=== PATIENT | female | born 1945 | race Caucasian/White ===

== ENCOUNTER 2023-04-07 22:52 | Emergency (ER) | payer MEDICARE, OTHER ==
[~2023-04-07] VITALS: Ht 165.1 cm; Wt 100.4 kg
[2023-04-07 22:56] VITALS: BP 164/88
--- NOTE | 2023-04-07 23:41 | NUR ---
PT REPORTS BEING PERSCRIBED GABAPENTIN FROM HER PMD BUT SHE HAS NOT TAKEN IT.
[2023-04-08] MEDS ORDERED: gabapentin 400mg capsule PO SCH (00:35)
[2023-04-08] MEDS ORDERED: ibuprofen 200mg tablet PO ONE (00:35)
[2023-04-08] MEDS ORDERED: HYDROcodone/acetaminophen 5mg/325mg tablet PO ONE (00:35)
[2023-04-08] MEDS ORDERED: acetaminophen 325mg tablet PO ONE (00:35)
[2023-04-08] MEDS ORDERED: gabapentin 100mg capsule PO ONE (01:00)
== END 2023-04-08 01:09 | disposition home or self-care (01) ==
LOC: ER 22:53
DX: M79.2 Neuralgia and neuritis, unspecified (principal); R20.0 Anesthesia of skin
CPT/HCPCS: 99284

== ENCOUNTER 2024-03-11 08:17 | Inpatient (IN) | payer MEDICARE, OTHER ==
[~2024-03-11] VITALS: Ht 167.6 cm; Wt 98.2 kg
[2024-03-11 09:48] LABS: BASOPHILS % (AUTO) 0.2 % (0-1); EOSINOPHILS # (AUTO) 0.2 X10'3 (0-0.9); EOSINOPHILS % (AUTO) 0.9 % (0-6); HEMOGLOBIN 14.1 g/dl (12.0-16.0); LYMPHOCYTES # (AUTO) 1.1 X10'3 (1.1-4.8); LYMPHOCYTES % (AUTO) 6.2 % (21-51); MEAN CORPUSCULAR HEMOGLOBIN 31.2 PG (27.0-31.0); MEAN CORPUSCULAR HGB CONC 32.1 g/dL (33.0-36.5); MEAN CORPUSCULAR VOLUME 97.2 FL (78-98); MEAN PLATELET VOLUME 10.1 FL (7.4-10.4); MONOCYTES # (AUTO) 1.5 X10'3 (0-0.9); MONOCYTES % (AUTO) 8.5 % (2-12); NEUTROPHILS # (AUTO) 15.2 X10'3 (1.8-7.7); NEUTROPHILS % (AUTO) 84.2 % (42-75); PLATELET COUNT 211 X10'3 (140-440); RED BLOOD COUNT 4.53 X10'6 (4.20-5.60); RED CELL DISTRIBUTION WIDTH 13.9 % (11.5-14.5)
[2024-03-11 10:11] LABS: ALANINE AMINOTRANSFERASE 27 U/L (12-78); ALBUMIN 3.5 G/DL (3.4-5.0); ALBUMIN/GLOBULIN RATIO 1.1 (1.1-1.5); ALKALINE PHOSPHATASE 53 IU/L (46-116); ANION GAP 11 (8-16); ASPARTATE AMINO TRANSFERASE 14 U/L (10-37); BILIRUBIN,TOTAL 0.5 MG/DL (0.1-1.0); BLOOD UREA NITROGEN 20 MG/DL (7-18); CALCIUM 9.2 MG/DL (8.5-10.1); CHLORIDE 106 MMOL/L (99-107); GLUCOSE 151 MG/DL (70-104); SODIUM 143 MMOL/L (135-145); TOTAL CARBON DIOXIDE 26.5 MMOL/L (24-32); TOTAL PROTEIN 6.7 G/DL (6.4-8.2); eCRCL 53 ML/MIN; eGFR 69 ML/MIN
[2024-03-11 10:21] LABS: AMYLASE 20 U/L (25-115); LIPASE 29 U/L (16-77); PRO BRAIN NATRIURETIC PEPTIDE 291 PG/ML (0-450)
[2024-03-11] MEDS: ondansetron/PF 4mg/2ml inj IV ONE (10:43)
[2024-03-11] MEDS: ringers solution, lacted 1,000 ML IV ONE (10:43)
[2024-03-11] MEDS: pantoprazole 40 MG vial IV ONE (10:43)
[2024-03-11 12:50] LABS: BILIRUBIN,URINE SMALL (Neg); CLARITY,URINE CLOUDY (Clear); COLOR,URINE YELLOW (Yellow); GLUCOSE, URINE NEGATIVE (Neg); KETONES,URINE NEGATIVE (Neg); LEUKOCYTE ESTERASE ,URINE TRACE (Neg); NITRITES, URINE POSITIVE (Neg); OCCULT BLOOD,URINE NEGATIVE (Neg); PROTEIN,URINE 100 mg/dl (Neg); UROBILINOGEN,URINE 0.2 E.U/dL (0.2-1.0)
[2024-03-11 13:14] LABS: SQUAMOUS EPITHELIAL CELL,UR MANY /LPF (FEW)
[2024-03-11 13:16] LABS: BACTERIA,URINE 4+ /HPF (Neg)
[2024-03-11 13:18] LABS: RBC,URINE 0-2 /HPF (0-2)
[2024-03-11 13:22] LABS: UA COLLECTION TYPE VOIDED
[2024-03-11] MEDS: CefTRIAXone 2gm/D5W 50ml BAG 50 ML IV ONE (14:33)
[2024-03-11] MEDS ORDERED: acetaminophen 325mg tablet PO PRN (15:25)
[2024-03-11] MEDS ORDERED: potassium Cl 40MEQ/1/2NS 520ml 520 ML IV PRN (15:25)
[2024-03-11] MEDS ORDERED: magnesium hydroxide 30ml (MOM) UD suspension PO PRN (15:25)
[2024-03-11] MEDS ORDERED: magnesium 4gm in 100ml NS 100 ML IV PRN (15:25)
[2024-03-11] MEDS ORDERED: magnesium Cl slow-release 64mg tablet PO PRN (15:25)
[2024-03-11] MEDS ORDERED: magnesium 2GM in 50ml NS 50 ML IV PRN (15:25)
[2024-03-11] MEDS ORDERED: potassium Cl 20 mEq SR tablet PO PRN ×2 (15:25)
[2024-03-11] MEDS ORDERED: ondansetron/PF 4mg/2ml inj IV PRN (15:25)
[2024-03-11] MEDS ORDERED: mag hydrox/Alum hydrox/simeth 30ml oral suspension PO PRN (15:25)
[2024-03-11] MEDS ORDERED: DEXTROSE 15 GM of carb/4 tabs (each vial/BOTTLE has 4 tablets) PO PRN ×2 (15:35)
[2024-03-11] MEDS ORDERED: glucagon, human recombinant 1mg kit SUBCUT PRN (15:35)
[2024-03-11] MEDS ORDERED: dextrose 50%-water 50ml dispensing syringe IV PRN ×2 (15:35)
[2024-03-11] MEDS: normal saline 1000ml 1,000 ML IV SCH (16:05)
[2024-03-11 16:19] LABS: HEMOGLOBIN A1C 6.1 % (4.5-6.2)
[2024-03-11] MEDS: INSULIN LISPRO 100 UNIT/ML INSULN.PEN MULTI-DOSE SQ SCH (17:00)
[2024-03-11] MEDS: heparin, porcine 5000 units/ml vial SQ SCH (20:00)
[2024-03-11] MEDS: K and/or MAG REPLACEMENT MC SCH (20:00)
[2024-03-11] MEDS: insulin glargine (Lantus) pen - multi-dose SQ SCH (21:00)
[2024-03-11 22:09] VITALS: BP 128/86; PULSE 71; RESP 16; TEMP 97.5; O2SAT 94
[2024-03-12 06:00] VITALS: BP 113/68; PULSE 65; RESP 14; TEMP 98.2; O2SAT 93
[2024-03-12] MEDS: CefTRIAXone/D5W-Rocephin 1gm 50 ML IV SCH (07:39)
[2024-03-12 08:05] LABS: BASOPHILS % (AUTO) 0.2 % (0-1); EOSINOPHILS # (AUTO) 0.1 X10'3 (0-0.9); HEMATOCRIT 39.7 % (35.0-45.0); HEMOGLOBIN 13.2 g/dl (12.0-16.0); LYMPHOCYTES # (AUTO) 1.3 X10'3 (1.1-4.8); LYMPHOCYTES % (AUTO) 13.1 % (21-51); MEAN CORPUSCULAR HEMOGLOBIN 32.2 PG (27.0-31.0); MEAN CORPUSCULAR HGB CONC 33.2 g/dL (33.0-36.5); MEAN CORPUSCULAR VOLUME 96.9 FL (78-98); MONOCYTES # (AUTO) 0.4 X10'3 (0-0.9); MONOCYTES % (AUTO) 4.4 % (2-12); NEUTROPHILS # (AUTO) 8.1 X10'3 (1.8-7.7); NEUTROPHILS % (AUTO) 81.3 % (42-75); PLATELET COUNT 193 X10'3 (140-440); RED CELL DISTRIBUTION WIDTH 13.7 % (11.5-14.5); WHITE BLOOD COUNT 9.9 X10'3 (4.5-11.0)
[2024-03-12 08:37] LABS: ALANINE AMINOTRANSFERASE 24 U/L (12-78); ALBUMIN 3.3 G/DL (3.4-5.0); ALBUMIN/GLOBULIN RATIO 1.1 (1.1-1.5); ALKALINE PHOSPHATASE 51 IU/L (46-116); ANION GAP 5 (8-16); ASPARTATE AMINO TRANSFERASE 14 U/L (10-37); BILIRUBIN,TOTAL 0.4 MG/DL (0.1-1.0); BLOOD UREA NITROGEN 17 MG/DL (7-18); BUN/CREATININE RATIO 31.5 (10.0-20.0); CALCIUM 8.4 MG/DL (8.5-10.1); CHLORIDE 110 MMOL/L (99-107); CHOLESTEROL 167 MG/DL (0-200); CREATININE 0.54 MG/DL (0.40-0.90); GLUCOSE 129 MG/DL (70-104); HDL CHOLESTEROL 56 MG/DL (35-60); LDL CHOLESTEROL 86 MG/DL (50-100); MAGNESIUM 2.2 MG/DL (1.5-2.4); POTASSIUM 4.1 MMOL/L (3.5-5.1); SODIUM 143 MMOL/L (135-145); THYROID STIMULATING HORMONE 0.34 ulU/ml (0.34-4.50); TOTAL CARBON DIOXIDE 28.5 MMOL/L (24-32); TOTAL PROTEIN 6.4 G/DL (6.4-8.2); TRIGLYCERIDES 97 MG/DL (20-135); eCRCL 79 ML/MIN; eGFR > 90 ML/MIN
[2024-03-12 11:00] VITALS: BP 128/81; PULSE 69; RESP 17; TEMP 98.4; O2SAT 97
[2024-03-12] MEDS ORDERED: SIMV-42 PO (17:49)
[2024-03-12] MEDS ORDERED: ASPI81TA52 PO (17:49)
[2024-03-12] MEDS ORDERED: METF-880 PO (17:49)
[2024-03-12 22:00] VITALS: BP 146/70; PULSE 62; RESP 16; TEMP 97.4; O2SAT 97
[2024-03-13 06:39] LABS: BASOPHILS # (AUTO) 0.1 X10'3 (0-0.2); EOSINOPHILS # (AUTO) 0.2 X10'3 (0-0.9); EOSINOPHILS % (AUTO) 2.4 % (0-6); HEMATOCRIT 38.2 % (35.0-45.0); HEMOGLOBIN 12.6 g/dl (12.0-16.0); LYMPHOCYTES # (AUTO) 1.7 X10'3 (1.1-4.8); LYMPHOCYTES % (AUTO) 21.4 % (21-51); MEAN CORPUSCULAR VOLUME 96.9 FL (78-98); MONOCYTES # (AUTO) 0.4 X10'3 (0-0.9); MONOCYTES % (AUTO) 4.9 % (2-12); NEUTROPHILS # (AUTO) 5.6 X10'3 (1.8-7.7); NEUTROPHILS % (AUTO) 70.3 % (42-75); PLATELET COUNT 178 X10'3 (140-440); RED BLOOD COUNT 3.94 X10'6 (4.20-5.60); RED CELL DISTRIBUTION WIDTH 13.8 % (11.5-14.5)
[2024-03-13 07:05] LABS: ALANINE AMINOTRANSFERASE 23 U/L (12-78); ALBUMIN 3.3 G/DL (3.4-5.0); ALBUMIN/GLOBULIN RATIO 1.1 (1.1-1.5); ALKALINE PHOSPHATASE 47 IU/L (46-116); ANION GAP 5 (8-16); ASPARTATE AMINO TRANSFERASE 18 U/L (10-37); BILIRUBIN,TOTAL 0.3 MG/DL (0.1-1.0); BLOOD UREA NITROGEN 13 MG/DL (7-18); BUN/CREATININE RATIO 26.5 (10.0-20.0); CALCIUM 8.2 MG/DL (8.5-10.1); CHLORIDE 111 MMOL/L (99-107); CREATININE 0.49 MG/DL (0.40-0.90); GLUCOSE 112 MG/DL (70-104); MAGNESIUM 2.3 MG/DL (1.5-2.4); POTASSIUM 4.1 MMOL/L (3.5-5.1); SODIUM 144 MMOL/L (135-145); TOTAL CARBON DIOXIDE 28.4 MMOL/L (24-32); TOTAL PROTEIN 6.4 G/DL (6.4-8.2); eCRCL 87 ML/MIN; eGFR > 90 ML/MIN
[2024-03-13] MEDS ORDERED: CEPH500C2 PO (14:01)
== END 2024-03-13 16:01 | disposition home health service (06) | DRG 392 ==
LOC: ER 08:18 → UNDOADMIN 15:28 → ED HOLD 15:28 → ORTHO 4S 21:28
PROVIDERS: ADMIT Family Medicine; ATTEND Internal Medicine
DX: A08.4 Viral intestinal infection, unspecified (principal); N39.0 Urinary tract infection, site not specified; E78.00 Pure hypercholesterolemia, unspecified; I25.10 Atherosclerotic heart disease of native coronary artery without angina pectoris; I35.0 Nonrheumatic aortic (valve) stenosis; Z20.822 Contact with and (suspected) exposure to COVID-19; E11.9 Type 2 diabetes mellitus without complications; N13.9 Obstructive and reflux uropathy, unspecified; M54.9 Dorsalgia, unspecified; I10 Essential (primary) hypertension; G89.29 Other chronic pain; Z90.710 Acquired absence of both cervix and uterus
CPT/HCPCS: 36415; 71045; 74176; 76700; 80053; 80061; 81001; 82150; 82948; 83036; 83605; 83690; 83735; 83880; 84443; 84484; 85025; 87040; 87077; 87081; 87088; 87186; 87811; 93005; 99285; C9113; G0378; J0696; J1644; J1815; J2405; J7030; J7120

== ENCOUNTER 2024-05-16 12:12 | Day surgery (SDC) | payer MEDICARE, OTHER ==
[~2024-05-16 12:12] MED LIST: ASPI81TA52 PO; CEPH500C2 PO; METF-880 PO; SIMV-42 PO
[2024-05-16 12:56] LABS: BASOPHILS % (AUTO) 0.3 % (0-1); EOSINOPHILS # (AUTO) 0.1 X10'3 (0-0.9); EOSINOPHILS % (AUTO) 0.8 % (0-6); HEMATOCRIT 40.9 % (35.0-45.0); HEMOGLOBIN 13.4 g/dl (12.0-16.0); LYMPHOCYTES # (AUTO) 1.4 X10'3 (1.1-4.8); LYMPHOCYTES % (AUTO) 15.9 % (21-51); MEAN CORPUSCULAR HEMOGLOBIN 31.4 PG (27.0-31.0); MEAN CORPUSCULAR HGB CONC 32.8 g/dL (33.0-36.5); MEAN CORPUSCULAR VOLUME 95.9 FL (78-98); MEAN PLATELET VOLUME 9.7 FL (7.4-10.4); MONOCYTES # (AUTO) 0.8 X10'3 (0-0.9); MONOCYTES % (AUTO) 8.5 % (2-12); NEUTROPHILS # (AUTO) 6.6 X10'3 (1.8-7.7); NEUTROPHILS % (AUTO) 74.5 % (42-75); PLATELET COUNT 192 X10'3 (140-440); RED BLOOD COUNT 4.27 X10'6 (4.20-5.60); RED CELL DISTRIBUTION WIDTH 14.3 % (11.5-14.5); WHITE BLOOD COUNT 8.9 X10'3 (4.5-11.0)
[2024-05-16 13:04] LABS: APTT 25 SECONDS (22-32); PROTHROMBIN TIME 10.6 SECONDS (9.0-12.0)
[2024-05-16 13:05] LABS: ALBUMIN 3.6 G/DL (3.4-5.0); ANION GAP 8 (8-16); BLOOD UREA NITROGEN 13 MG/DL (7-18); BUN/CREATININE RATIO 22.4 (10.0-20.0); CHLORIDE 107 MMOL/L (99-107); CHOL/HDL RATIO 2.7 (0.00-4.99); CHOLESTEROL 173 MG/DL (0-200); CREATININE 0.58 MG/DL (0.40-0.90); GLUCOSE 104 MG/DL (70-104); HDL CHOLESTEROL 64 MG/DL (35-60); LDL CHOLESTEROL 92 MG/DL (50-100); SODIUM 143 MMOL/L (135-145); TOTAL CARBON DIOXIDE 28.2 MMOL/L (24-32); TRIGLYCERIDES 91 MG/DL (20-135); eGFR > 90 ML/MIN
[2024-05-19] MEDS ORDERED: LIDOcaine 1% (10mg/ml) 2ml vial ONE (11:44)
[2024-05-19] MEDS ORDERED: verapamil 2.5 mg/ml inj IV ONE (11:44)
[2024-05-19] MEDS ORDERED: heparin 1,000 UNITS/NS 500ml 500 ML ONE (11:44)
[2024-05-19] MEDS ORDERED: heparin 1,000unit/ml 10ml vial 0 ML ONE (11:44)
[2024-05-19] MEDS ORDERED: nitroGLYCERIN 500mcg/5mL D5W 0 ML IV ONE (11:44)
[2024-05-19] MEDS ORDERED: iohexol 350MG/ML 100ml bottle IV ONE (11:44)
[2024-05-19] MEDS ORDERED: midazolam 1 mg/ML 2ml injection ONE (11:45)
[2024-05-19] MEDS ORDERED: fentaNYL/PF 50MCG/1 ML 2ML syringe ONE (11:45)
== END 2024-05-16 23:59 | disposition home or self-care (01) ==
LOC: SSTAY O 12:12
PROVIDERS: ATTEND Student in an Organized Health Care Education/Training Program
DX: Z01.818 Encounter for other preprocedural examination (principal); I35.0 Nonrheumatic aortic (valve) stenosis; R53.83 Other fatigue; E78.00 Pure hypercholesterolemia, unspecified; G62.9 Polyneuropathy, unspecified; M19.90 Unspecified osteoarthritis, unspecified site; Z79.84 Long term (current) use of oral hypoglycemic drugs; Z79.82 Long term (current) use of aspirin; Z79.899 Other long term (current) drug therapy
CPT/HCPCS: 36415; 80048; 80061; 85025; 85610; 85730; J1644; J2250; J3010; J3490; Q9967

== ENCOUNTER 2024-08-12 13:28 | Inpatient (IN) | payer MEDICARE, OTHER ==
[~2024-08-12] VITALS: Ht 165.1 cm; Wt 107.5 kg
[2024-08-12] VITALS (7 sets, daily range): BP systolic 72–94; BP diastolic 34–62; PULSE 87–101; RESP 13–19; TEMP 98.3–98.8; O2SAT 87–96
[~2024-08-12 13:28] MED LIST changes: +ASCO500C14 PO; +CHOL500049 PO; +MULT-1085 PO; +OMEG100037 PO; +UBID50TA3 PO; +ZINC30CA PO
[2024-08-12 13:50] LABS: BASOPHILS % (AUTO) 0.1 % (0-1); EOSINOPHILS % (AUTO) 0.5 % (0-6); HEMATOCRIT 41.7 % (35.0-45.0); HEMOGLOBIN 13.4 g/dl (12.0-16.0); LYMPHOCYTES # (AUTO) 0.2 X10'3 (1.1-4.8); MEAN CORPUSCULAR HEMOGLOBIN 31.2 PG (27.0-31.0); MEAN CORPUSCULAR HGB CONC 32.1 g/dL (33.0-36.5); MEAN CORPUSCULAR VOLUME 97.3 FL (78-98); MONOCYTES % (AUTO) 0.3 % (2-12); NEUTROPHILS # (AUTO) 3.8 X10'3 (1.8-7.7); NEUTROPHILS % (AUTO) 93.1 % (42-75); PLATELET COUNT 145 X10'3 (140-440); RED BLOOD COUNT 4.28 X10'6 (4.20-5.60); RED CELL DISTRIBUTION WIDTH 14.2 % (11.5-14.5); WHITE BLOOD COUNT 4.1 X10'3 (4.5-11.0)
[2024-08-12 14:02] LABS: ALANINE AMINOTRANSFERASE 26 U/L (12-78); ALBUMIN 3.5 G/DL (3.4-5.0); ALBUMIN/GLOBULIN RATIO 1.3 (1.1-1.5); ALKALINE PHOSPHATASE 72 IU/L (46-116); ANION GAP 12 (8-16); ASPARTATE AMINO TRANSFERASE 16 U/L (10-37); BILIRUBIN,TOTAL 0.9 MG/DL (0.1-1.0); BLOOD UREA NITROGEN 17 MG/DL (7-18); CALCIUM 8.8 MG/DL (8.5-10.1); CHLORIDE 109 MMOL/L (99-107); CREATININE 1.06 MG/DL (0.40-0.90); GLUCOSE 139 MG/DL (70-104); POTASSIUM 3.4 MMOL/L (3.5-5.1); SODIUM 145 MMOL/L (135-145); TOTAL CARBON DIOXIDE 24.2 MMOL/L (24-32); TOTAL PROTEIN 6.3 G/DL (6.4-8.2); eGFR 50 ML/MIN
[2024-08-12] MEDS: normal saline 1000ML IV soln IVB ONE ×2 (14:08→17:13)
[2024-08-12 14:10] LABS: PRO BRAIN NATRIURETIC PEPTIDE 459 PG/ML (0-450)
[2024-08-12] MEDS: morphine 4 MG/ML inj SYRINge IV ONE (14:29)
[2024-08-12 15:27] LABS: BILIRUBIN,URINE NEGATIVE (Neg); CLARITY,URINE CLOUDY (Clear); COLOR,URINE YELLOW (Yellow); GLUCOSE, URINE NEGATIVE (Neg); KETONES,URINE NEGATIVE (Neg); LEUKOCYTE ESTERASE ,URINE SMALL (Neg); NITRITES, URINE NEGATIVE (Neg); OCCULT BLOOD,URINE MODERATE (Neg); PROTEIN,URINE 100 mg/dl (Neg); UA COLLECTION TYPE STRAIGHT CATH
[2024-08-12 15:34] LABS: SQUAMOUS EPITHELIAL CELL,UR FEW /LPF (FEW); WBC,URINE 30-50 /HPF (0-4)
[2024-08-12 15:35] LABS: BACTERIA,URINE 4+ /HPF (Neg)
[2024-08-12] MEDS ORDERED: magnesium sulf-water 2g/50mL 50 ML IV PRN (15:40)
[2024-08-12] MEDS ORDERED: potassium Cl 40MEQ/1/2NS 520ml 520 ML IV PRN (15:40)
[2024-08-12] MEDS ORDERED: magnesium Cl slow-release 64mg tablet PO PRN (15:40)
[2024-08-12] MEDS ORDERED: potassium Cl 20 mEq SR tablet PO PRN ×2 (15:40)
[2024-08-12] MEDS ORDERED: ondansetron/PF 4mg/2ml inj IV PRN (15:40)
[2024-08-12] MEDS ORDERED: magnesium sulf-water 4G/100mL 100 ML IV PRN (15:40)
[2024-08-12] MEDS: CefTRIAXone 2gm/D5W 50ml BAG 50 ML IV ONE (15:49)
[2024-08-12] MEDS: normal saline 1000ml 1,000 ML IV SCH (16:40)
[2024-08-12] MEDS: acetaminophen 325mg tablet PO SCH (16:41)
[2024-08-12] MEDS: normal saline 500ml IV soln 500 ML IV ONE (17:00)
[2024-08-12 18:11] LABS: C-REACTIVE PROTEIN 0.66 MG/DL (0.0-0.5)
[2024-08-12] MEDS: tamsulosin 0.4mg capsule PO SCH (18:55)
[2024-08-12] MEDS: heparin, porcine 5000 units/ml vial SQ SCH (20:00)
[2024-08-12] MEDS: normal saline 1000ml 1,000 ML IV ONE (22:28)
[2024-08-12 23:13] LABS: BASOPHILS % (AUTO) 0 % (0-1); EOSINOPHILS % (AUTO) 0 % (0-6); HEMATOCRIT 32.8 % (35.0-45.0); HEMOGLOBIN 10.5 g/dl (12.0-16.0); LYMPHOCYTES # (AUTO) 0.2 X10'3 (1.1-4.8); LYMPHOCYTES % (AUTO) 0.9 % (21-51); MEAN CORPUSCULAR VOLUME 97.1 FL (78-98); MEAN PLATELET VOLUME 10.2 FL (7.4-10.4); MONOCYTES # (AUTO) 0.8 X10'3 (0-0.9); MONOCYTES % (AUTO) 3.4 % (2-12); NEUTROPHILS # (AUTO) 23.3 X10'3 (1.8-7.7); NEUTROPHILS % (AUTO) 95.7 % (42-75); PLATELET COUNT 114 X10'3 (140-440); RED BLOOD COUNT 3.38 X10'6 (4.20-5.60); RED CELL DISTRIBUTION WIDTH 14.2 % (11.5-14.5); WHITE BLOOD COUNT 24.3 X10'3 (4.5-11.0)
[2024-08-12 23:42] LABS: ALANINE AMINOTRANSFERASE 26 U/L (12-78); ALBUMIN 2.6 G/DL (3.4-5.0); ALBUMIN/GLOBULIN RATIO 1.1 (1.1-1.5); ALKALINE PHOSPHATASE 43 IU/L (46-116); ANION GAP 9 (8-16); ASPARTATE AMINO TRANSFERASE 20 U/L (10-37); BILIRUBIN,TOTAL 0.4 MG/DL (0.1-1.0); BLOOD UREA NITROGEN 20 MG/DL (7-18); BUN/CREATININE RATIO 16.1 (10.0-20.0); CALCIUM 7.7 MG/DL (8.5-10.1); CHLORIDE 112 MMOL/L (99-107); CREATININE 1.24 MG/DL (0.40-0.90); GLUCOSE 163 MG/DL (70-104); POTASSIUM 3.9 MMOL/L (3.5-5.1); SODIUM 143 MMOL/L (135-145); TOTAL CARBON DIOXIDE 22.4 MMOL/L (24-32); eCRCL 33 ML/MIN; eGFR 42 ML/MIN
[2024-08-13] VITALS (25 sets, daily range): BP systolic 64–131; BP diastolic 30–82; PULSE 67–97; RESP 10–19; O2SAT 91–98
[2024-08-13] MEDS: NORepinephrine 8mg/ 250ml NS 250 ML IV SCH (01:41)
[2024-08-13 04:53] LABS: BASOPHILS % (AUTO) 0 % (0-1); EOSINOPHILS % (AUTO) 0 % (0-6); HEMATOCRIT 36.8 % (35.0-45.0); HEMOGLOBIN 11.6 g/dl (12.0-16.0); LYMPHOCYTES # (AUTO) 0.7 X10'3 (1.1-4.8); MEAN CORPUSCULAR HEMOGLOBIN 30.9 PG (27.0-31.0); MEAN CORPUSCULAR HGB CONC 31.6 g/dL (33.0-36.5); MEAN CORPUSCULAR VOLUME 97.6 FL (78-98); MEAN PLATELET VOLUME 9.6 FL (7.4-10.4); MONOCYTES # (AUTO) 1.6 X10'3 (0-0.9); MONOCYTES % (AUTO) 4.3 % (2-12); NEUTROPHILS # (AUTO) 33.9 X10'3 (1.8-7.7); NEUTROPHILS % (AUTO) 93.7 % (42-75); PLATELET COUNT 128 X10'3 (140-440); RED BLOOD COUNT 3.77 X10'6 (4.20-5.60); RED CELL DISTRIBUTION WIDTH 14.6 % (11.5-14.5)
[2024-08-13 05:00] LABS: WHITE BLOOD COUNT 36.2 X10'3 (4.5-11.0)
[2024-08-13 05:09] LABS: ALANINE AMINOTRANSFERASE 28 U/L (12-78); ALBUMIN 2.7 G/DL (3.4-5.0); ALKALINE PHOSPHATASE 50 IU/L (46-116); ANION GAP 9 (8-16); ASPARTATE AMINO TRANSFERASE 23 U/L (10-37); BILIRUBIN,TOTAL 0.6 MG/DL (0.1-1.0); BLOOD UREA NITROGEN 24 MG/DL (7-18); BUN/CREATININE RATIO 19.4 (10.0-20.0); CALCIUM 7.8 MG/DL (8.5-10.1); CHLORIDE 110 MMOL/L (99-107); CREATININE 1.24 MG/DL (0.40-0.90); GLUCOSE 169 MG/DL (70-104); POTASSIUM 3.9 MMOL/L (3.5-5.1); SODIUM 142 MMOL/L (135-145); TOTAL CARBON DIOXIDE 22.6 MMOL/L (24-32); TOTAL PROTEIN 5.5 G/DL (6.4-8.2); eCRCL 33 ML/MIN; eGFR 42 ML/MIN
[2024-08-13 05:34] LABS: PLATELET ESTIMATE DECREASED; TOTAL CELLS COUNTED 100
[2024-08-13 05:35] LABS: LARGE PLATELETS FEW
[2024-08-13 06:50] LABS: ABG BASE EXCESS -5.7 mmol/L (-2.0-3.0); ABG HCO3 20.3 mmol/L (21.0-28.0); ABG OXYGEN SATURATION 95.6 % (94.0-98.0); ABG PCO2 (T) 42.2 mmHg (32.0-45.0); ABG PH (T) 7.301 (7.350-7.450); ABG PO2 (T) 81.6 mmHg (83.0-108.0); ALLEN'S TEST POSITIVE; FCOHb 0.5 % (0.5-1.5); FHHb 4.4 % (0.0-5.0); FLOW 2 L/min; FMetHb 0.3 % (0.0-1.5); FO2Hb 94.8 % (94.0-98.0); MODE NASAL CANNULA; PATIENT TEMPERATURE 37.4; TOTAL HEMOGLOBIN 12.7 G/dl (12.0-16.0)
[2024-08-13] MEDS: CefTRIAXone 2gm/D5W 50ml BAG 50 ML IV SCH (07:13)
[2024-08-13 08:15] LABS: MAGNESIUM 1.6 MG/DL (1.5-2.4)
[2024-08-13 09:32] LABS: HEMOGLOBIN A1C 6.1 % (4.5-6.2)
[2024-08-13] MEDS: polyethylene glycol 3350 17gm powd pack PO SCH (10:32)
[2024-08-13] MEDS: albumin (human) 25% 100ml IV 400 ML IV ONE (10:35)
[2024-08-13] MEDS: acetaminophen 325mg tablet PO PRN (11:05)
[2024-08-13] MEDS: albumin (Human) 5% 250ml 250 ML IV SCH (11:35)
[2024-08-13] MEDS ORDERED: sevoflurane 250ml liquid IH ONE (14:55)
[2024-08-13] MEDS: IOPAMIDOL 10 ML VIAL IT ONE (15:59)
[2024-08-14] VITALS (18 sets, daily range): BP systolic 107–152; BP diastolic 46–77; PULSE 60–85; RESP 10–23; TEMP 97.4–98.2; O2SAT 94–99
[2024-08-14 02:42] LABS: BASOPHILS % (AUTO) 0 % (0-1); EOSINOPHILS # (AUTO) 0.1 X10'3 (0-0.9); EOSINOPHILS % (AUTO) 0.3 % (0-6); HEMATOCRIT 32.5 % (35.0-45.0); HEMOGLOBIN 10.8 g/dl (12.0-16.0); LYMPHOCYTES # (AUTO) 0.5 X10'3 (1.1-4.8); LYMPHOCYTES % (AUTO) 1.8 % (21-51); MEAN CORPUSCULAR HEMOGLOBIN 32.1 PG (27.0-31.0); MEAN CORPUSCULAR HGB CONC 33.1 g/dL (33.0-36.5); MEAN CORPUSCULAR VOLUME 97.1 FL (78-98); MEAN PLATELET VOLUME 10.1 FL (7.4-10.4); MONOCYTES % (AUTO) 3.3 % (2-12); NEUTROPHILS # (AUTO) 27.4 X10'3 (1.8-7.7); NEUTROPHILS % (AUTO) 94.6 % (42-75); PLATELET COUNT 101 X10'3 (140-440); RED BLOOD COUNT 3.35 X10'6 (4.20-5.60); RED CELL DISTRIBUTION WIDTH 14.8 % (11.5-14.5)
[2024-08-14 02:56] LABS: ALANINE AMINOTRANSFERASE 26 U/L (12-78); ALBUMIN 3.2 G/DL (3.4-5.0); ALBUMIN/GLOBULIN RATIO 1.2 (1.1-1.5); ALKALINE PHOSPHATASE 54 IU/L (46-116); ANION GAP 7 (8-16); ASPARTATE AMINO TRANSFERASE 23 U/L (10-37); BILIRUBIN,TOTAL 0.4 MG/DL (0.1-1.0); BLOOD UREA NITROGEN 18 MG/DL (7-18); BUN/CREATININE RATIO 23.4 (10.0-20.0); CALCIUM 8.1 MG/DL (8.5-10.1); CHLORIDE 112 MMOL/L (99-107); CREATININE 0.77 MG/DL (0.40-0.90); GLUCOSE 174 MG/DL (70-104); PHOSPHORUS 3.1 MG/DL (2.3-4.5); POTASSIUM 4.2 MMOL/L (3.5-5.1); SODIUM 145 MMOL/L (135-145); TOTAL CARBON DIOXIDE 26.4 MMOL/L (24-32); TOTAL PROTEIN 5.8 G/DL (6.4-8.2); eCRCL 52 ML/MIN; eGFR 72 ML/MIN
[2024-08-14 03:34] LABS: BANDS% (MANUAL) 16 % (0-10); LYMPHOCYTES % (MANUAL) 3 % (21-51); METAMYLEOCYTES% (MANUAL) 3 % (0-0); NEUTROPHILS % (MANUAL) 78 % (42-75); PLATELET ESTIMATE DECREASED; TOTAL CELLS COUNTED 100
[2024-08-14 03:35] LABS: ANISOCYTOSIS 1+
[2024-08-14] MEDS ORDERED: ipratropium/albuterol 3ml nebule NEB PRN (16:20)
[2024-08-14] MEDS: furosemide 20MG tablet PO SCH (16:45)
[2024-08-14] MEDS: furosemide 20 MG/2 ML vial IV ONE (17:25)
[2024-08-14] MEDS: furosemide 20 MG/2 ML vial IV STA (17:50)
[2024-08-14] MEDS ORDERED: aspirin 81mg, enteric-coated 1 TAB TABLET.DR PO SCH (18:35)
[2024-08-14] MEDS: psyllium seed 5.8 gm packet (sugar-free) PO SCH (21:51)
[2024-08-14 23:52] LABS: APTT 29 SECONDS (22-32); D-DIMER 11.64 MG/L FEU (0-0.50); FIBRINOGEN 448 MG/DL (177-424); INR 1.1 INR; PROTHROMBIN TIME 11.4 SECONDS (9.0-12.0)
[2024-08-15] VITALS (11 sets, daily range): BP systolic 103–138; BP diastolic 65–78; PULSE 65–80; RESP 13–22; TEMP 96.5–98.1; O2SAT 95–98
[2024-08-15 07:37] LABS: BASOPHILS % (AUTO) 0.1 % (0-1); EOSINOPHILS # (AUTO) 0.1 X10'3 (0-0.9); EOSINOPHILS % (AUTO) 0.2 % (0-6); HEMATOCRIT 33.1 % (35.0-45.0); LYMPHOCYTES # (AUTO) 0.9 X10'3 (1.1-4.8); LYMPHOCYTES % (AUTO) 3.8 % (21-51); MEAN CORPUSCULAR HEMOGLOBIN 31.8 PG (27.0-31.0); MEAN CORPUSCULAR HGB CONC 33.1 g/dL (33.0-36.5); MEAN PLATELET VOLUME 10.8 FL (7.4-10.4); MONOCYTES # (AUTO) 0.6 X10'3 (0-0.9); MONOCYTES % (AUTO) 2.6 % (2-12); NEUTROPHILS # (AUTO) 22.5 X10'3 (1.8-7.7); NEUTROPHILS % (AUTO) 93.3 % (42-75); PLATELET COUNT 112 X10'3 (140-440); RED BLOOD COUNT 3.45 X10'6 (4.20-5.60); RED CELL DISTRIBUTION WIDTH 13.8 % (11.5-14.5); WHITE BLOOD COUNT 24.1 X10'3 (4.5-11.0)
[2024-08-15 07:50] LABS: ALANINE AMINOTRANSFERASE 35 U/L (12-78); ALKALINE PHOSPHATASE 93 IU/L (46-116); ANION GAP 5 (8-16); ASPARTATE AMINO TRANSFERASE 24 U/L (10-37); BILIRUBIN,TOTAL 0.5 MG/DL (0.1-1.0); BLOOD UREA NITROGEN 16 MG/DL (7-18); CALCIUM 8.2 MG/DL (8.5-10.1); CHLORIDE 107 MMOL/L (99-107); CREATININE 0.64 MG/DL (0.40-0.90); GLUCOSE 128 MG/DL (70-104); MAGNESIUM 1.9 MG/DL (1.5-2.4); POTASSIUM 3.6 MMOL/L (3.5-5.1); SODIUM 141 MMOL/L (135-145); TOTAL CARBON DIOXIDE 28.9 MMOL/L (24-32); eCRCL 63 ML/MIN; eGFR 89 ML/MIN
[2024-08-15] MEDS: simvastatin 20mg tablet PO SCH (08:03)
[2024-08-15] MEDS: multivitamins, therapeutics tablet PO SCH (08:03)
[2024-08-15 08:06] LABS: LARGE PLATELETS FEW; PLATELET ESTIMATE DECREASED; POLYCHROMASIA FEW; TOTAL CELLS COUNTED 100
[2024-08-15] MEDS ORDERED: iohexol 350MG/ML 100ml bottle IV ONE (12:18)
[2024-08-16] VITALS (13 sets, daily range): BP systolic 121–157; BP diastolic 63–75; PULSE 60–81; RESP 11–20; TEMP 97.1–99.5; O2SAT 92–98
[2024-08-16 07:26] LABS: BASOPHILS % (AUTO) 0.3 % (0-1); EOSINOPHILS # (AUTO) 0.2 X10'3 (0-0.9); EOSINOPHILS % (AUTO) 1.8 % (0-6); HEMATOCRIT 33.7 % (35.0-45.0); HEMOGLOBIN 11.3 g/dl (12.0-16.0); LYMPHOCYTES # (AUTO) 1.1 X10'3 (1.1-4.8); LYMPHOCYTES % (AUTO) 8.6 % (21-51); MEAN CORPUSCULAR HEMOGLOBIN 31.9 PG (27.0-31.0); MEAN CORPUSCULAR HGB CONC 33.5 g/dL (33.0-36.5); MEAN CORPUSCULAR VOLUME 95.2 FL (78-98); MEAN PLATELET VOLUME 10.5 FL (7.4-10.4); MONOCYTES # (AUTO) 0.7 X10'3 (0-0.9); MONOCYTES % (AUTO) 5.5 % (2-12); NEUTROPHILS # (AUTO) 10.6 X10'3 (1.8-7.7); NEUTROPHILS % (AUTO) 83.8 % (42-75); PLATELET COUNT 134 X10'3 (140-440); RED BLOOD COUNT 3.54 X10'6 (4.20-5.60); RED CELL DISTRIBUTION WIDTH 13.8 % (11.5-14.5); WHITE BLOOD COUNT 12.6 X10'3 (4.5-11.0)
[2024-08-16 07:42] LABS: ALANINE AMINOTRANSFERASE 32 U/L (12-78); ALBUMIN 2.9 G/DL (3.4-5.0); ALKALINE PHOSPHATASE 83 IU/L (46-116); ANION GAP 2 (8-16); ASPARTATE AMINO TRANSFERASE 20 U/L (10-37); BILIRUBIN,TOTAL 0.5 MG/DL (0.1-1.0); BLOOD UREA NITROGEN 17 MG/DL (7-18); BUN/CREATININE RATIO 29.3 (10.0-20.0); CALCIUM 8.4 MG/DL (8.5-10.1); CHLORIDE 107 MMOL/L (99-107); CREATININE 0.58 MG/DL (0.40-0.90); GLUCOSE 120 MG/DL (70-104); PHOSPHORUS 3.1 MG/DL (2.3-4.5); POTASSIUM 3.4 MMOL/L (3.5-5.1); SODIUM 143 MMOL/L (135-145); TOTAL CARBON DIOXIDE 33.9 MMOL/L (24-32); TOTAL PROTEIN 5.9 G/DL (6.4-8.2); eCRCL 70 ML/MIN; eGFR > 90 ML/MIN
[2024-08-16 08:07] LABS: PLATELET ESTIMATE DECREASED; TOTAL CELLS COUNTED 100
[2024-08-16] MEDS: lactose-reduced food (Ensure Enlive) - 237ml bottle PO SCH (08:13)
[2024-08-16] MEDS ORDERED: magnesium sulf-water 2g/50mL 50 ML IV PRN ×2 (08:45→08:55)
[2024-08-16] MEDS ORDERED: magnesium sulf-water 4G/100mL 100 ML IV PRN ×2 (08:45→08:55)
[2024-08-16] MEDS ORDERED: potassium Cl 40MEQ/270ML bag 250 ML IV PRN (08:45)
[2024-08-16] MEDS ORDERED: potassium Cl 20mEq/100mL bag 100 ML IV PRN (08:45)
[2024-08-16] MEDS ORDERED: potassium CL 10mEq/100ml bag 100 ML IV PRN (08:45)
[2024-08-16] MEDS ORDERED: potassium Cl 40MEQ/1/2NS 520ml 520 ML IV PRN ×2 (08:45→08:55)
[2024-08-16] MEDS ORDERED: potassium Cl 20 mEq SR tablet PO PRN ×2 (08:45→08:55)
[2024-08-16] MEDS ORDERED: magnesium Cl slow-release 64mg tablet PO PRN (08:55)
[2024-08-16] MEDS: potassium Cl 20 mEq SR tablet PO PRN (09:19)
[2024-08-16] MEDS: lactulose 20gm/30ml cup PO ONE (11:22)
[2024-08-16] MEDS: K and/or MAG REPLACEMENT MC SCH (20:00)
[2024-08-17 02:00] VITALS: BP 157/71; PULSE 70; RESP 12; TEMP 98.3; O2SAT 93
[2024-08-17 06:00] VITALS: BP 145/80; PULSE 75; RESP 13; TEMP 98; O2SAT 94
[2024-08-17 06:41] LABS: BASOPHILS # (AUTO) 0.1 X10'3 (0-0.2); BASOPHILS % (AUTO) 0.7 % (0-1); EOSINOPHILS # (AUTO) 0.3 X10'3 (0-0.9); EOSINOPHILS % (AUTO) 3.8 % (0-6); HEMOGLOBIN 12.3 g/dl (12.0-16.0); LYMPHOCYTES # (AUTO) 1.3 X10'3 (1.1-4.8); LYMPHOCYTES % (AUTO) 15.4 % (21-51); MEAN CORPUSCULAR HEMOGLOBIN 31.3 PG (27.0-31.0); MEAN CORPUSCULAR HGB CONC 33.1 g/dL (33.0-36.5); MEAN CORPUSCULAR VOLUME 94.7 FL (78-98); MEAN PLATELET VOLUME 9.7 FL (7.4-10.4); MONOCYTES # (AUTO) 0.6 X10'3 (0-0.9); MONOCYTES % (AUTO) 7.6 % (2-12); NEUTROPHILS # (AUTO) 5.9 X10'3 (1.8-7.7); NEUTROPHILS % (AUTO) 72.5 % (42-75); PLATELET COUNT 149 X10'3 (140-440); RED BLOOD COUNT 3.91 X10'6 (4.20-5.60); RED CELL DISTRIBUTION WIDTH 13.6 % (11.5-14.5); WHITE BLOOD COUNT 8.1 X10'3 (4.5-11.0)
[2024-08-17 07:00] LABS: ALANINE AMINOTRANSFERASE 39 U/L (12-78); ALKALINE PHOSPHATASE 80 IU/L (46-116); ANION GAP 6 (8-16); ASPARTATE AMINO TRANSFERASE 24 U/L (10-37); BILIRUBIN,TOTAL 0.5 MG/DL (0.1-1.0); BLOOD UREA NITROGEN 15 MG/DL (7-18); BUN/CREATININE RATIO 26.8 (10.0-20.0); CHLORIDE 107 MMOL/L (99-107); CREATININE 0.56 MG/DL (0.40-0.90); GLUCOSE 111 MG/DL (70-104); MAGNESIUM 2.1 MG/DL (1.5-2.4); PHOSPHORUS 3.8 MG/DL (2.3-4.5); POTASSIUM 3.8 MMOL/L (3.5-5.1); SODIUM 145 MMOL/L (135-145); TOTAL CARBON DIOXIDE 31.8 MMOL/L (24-32); TOTAL PROTEIN 6.1 G/DL (6.4-8.2); eCRCL 72 ML/MIN; eGFR > 90 ML/MIN
[2024-08-17] MEDS ORDERED: DEXTROSE 15 GM of carb/4 tabs (each vial/BOTTLE has 4 tablets) PO PRN ×2 (07:35)
[2024-08-17] MEDS ORDERED: dextrose 50%-water 50ml dispensing syringe IV PRN ×2 (07:35)
[2024-08-17] MEDS ORDERED: glucagon, human recombinant 1mg kit SUBCUT PRN (07:35)
[2024-08-17 08:00] VITALS: RESP 13; O2SAT 94
[2024-08-17 08:14] LABS: PLATELET ESTIMATE NORMAL; TOTAL CELLS COUNTED 100
[2024-08-17] MEDS ORDERED: LEVO750T68 PO (09:16)
[2024-08-17] MEDS ORDERED: INSULIN LISPRO 100 UNIT/ML INSULN.PEN MULTI-DOSE SQ SCH (12:00)
[2024-08-17 19:13] LABS: ANTITHROMBIN ACTIVITY 79 % (75-135); ANTITHROMBIN ANTIGEN 79 % (72-124)
== END 2024-08-17 10:55 | disposition home health service (06) | DRG 853 ==
LOC: ER 13:29 → ED HOLD 15:44 → UNDOADMIN 15:44 → ED HOLD 16:36 → PCU 3S 19:00 → ED HOLD 19:00 → CICU 2S 08-13 01:04 → PCU 3S 08-13 01:04
PROVIDERS: ADMIT Internal Medicine; ATTEND Internal Medicine
PROC: 02HV33Z Insertion of Infusion Device into Superior Vena Cava, Percutaneous Approach (ICD-10-PCS; 2024-08-13)
PROC: BT1D1ZZ Fluoroscopy of Right Kidney, Ureter and Bladder using Low Osmolar Contrast (ICD-10-PCS; 2024-08-13)
PROC: B548ZZA Ultrasonography of Superior Vena Cava, Guidance (ICD-10-PCS; 2024-08-13)
PROC: 0T768DZ Dilation of Right Ureter with Intraluminal Device, Via Natural or Artificial Opening Endoscopic (ICD-10-PCS; principal; 2024-08-13 14:55)
PROC: 5A09357 Assistance with Respiratory Ventilation, Less than 24 Consecutive Hours, Continuous Positive Airway Pressure (ICD-10-PCS; 2024-08-14)
PROC: B32T1ZZ Computerized Tomography (CT Scan) of Left Pulmonary Artery using Low Osmolar Contrast (ICD-10-PCS; 2024-08-15)
PROC: B3201ZZ Computerized Tomography (CT Scan) of Thoracic Aorta using Low Osmolar Contrast (ICD-10-PCS; 2024-08-15)
PROC: B32S1ZZ Computerized Tomography (CT Scan) of Right Pulmonary Artery using Low Osmolar Contrast (ICD-10-PCS; 2024-08-15)
DX: A41.9 Sepsis, unspecified organism (principal); I21.A1 Myocardial infarction type 2; R65.21 Severe sepsis with septic shock; J96.01 Acute respiratory failure with hypoxia; K56.609 Unspecified intestinal obstruction, unspecified as to partial versus complete obstruction; N13.6 Pyonephrosis; K56.7 Ileus, unspecified; N17.9 Acute kidney failure, unspecified; Z20.822 Contact with and (suspected) exposure to COVID-19; I35.0 Nonrheumatic aortic (valve) stenosis; E78.00 Pure hypercholesterolemia, unspecified; I12.9 Hypertensive chronic kidney disease with stage 1 through stage 4 chronic kidney disease, or unspecified chronic kidney disease; N18.9 Chronic kidney disease, unspecified; E11.22 Type 2 diabetes mellitus with diabetic chronic kidney disease; I25.10 Atherosclerotic heart disease of native coronary artery without angina pectoris; G89.29 Other chronic pain; M54.50 Low back pain, unspecified; Z79.82 Long term (current) use of aspirin; Z79.899 Other long term (current) drug therapy; Z90.710 Acquired absence of both cervix and uterus
CPT/HCPCS: 36415; 36600; 71045; 71275; 74176; 76000; 80048; 80053; 80061; 81001; 82570; 82803; 82948; 83036; 83605; 83735; 83880; 83930; 83935; 84100; 84132; 84145; 84300; 84484; 85007; 85018; 85025; 85300; 85301; 85303; 85379; 85384; 85610; 85651; 85730; 86140; 87040; 87077; 87081; 87088; 87186; 87207; 87811; 93005; 93306; 93880; 94660; 94760; 96365; 96367; 97110; 97116; 97161; 97530; 99291; A4333; A4357; A4615; A4618; A6222; A6258; A6402; A7000; C1751; C1758; C1769; C1894; C2617; G0378; J0696; J1644; J1815; J1940; J2250; J2270; J2405; J2704; J3010; J3490; J7030; J7040; P9045; P9047; Q0163; Q9966; Q9967

== ENCOUNTER 2025-05-26 12:09 | Inpatient (IN) | payer MEDICARE, OTHER ==
[~2025-05-26] VITALS: Ht 167.6 cm; Wt 103.4 kg
[~2025-05-26 12:09] MED LIST changes: -CEPH500C2 PO; +METF-1142 PO; -METF-880 PO
[2025-05-26 12:49] LABS: MEAN PLATELET VOLUME 9.9 FL (7.4-10.4); RED CELL DISTRIBUTION WIDTH 13.6 % (11.5-14.5)
--- NOTE | 2025-05-26 12:51 | ELECTROCARDIOGRAPH REPORT ---
[facility] Test Date: 2025-05-26 Test Time: 12:15:11 Pat Name: JIGNESH MCPHERSON Department: EMERGENCY ROOM Room: Gender: F Registered Pharmacy Technician: HEMANT : 1945 Requested By: LEILA ARTEAGA Order Number: [id number] Reading MD: Measurements Intervals [place] Rate: 136 P: 0 MN: 0 QRS: 53 QRSD: 114 T: 72 QT: 417 QTc: 628 Interpretive Statements Atrial flutter with predominant 2:1 AV block Borderline intraventricular conduction delay ST elevation, consider inferior injury Prolonged QT interval Baseline wander in lead(s) V4 Please click the below link to view image of tracing.
--- NOTE | 2025-05-26 13:02 | RADIOLOGY REPORT ---
CHEST RADIOGRAPH Indication: CP Technique: Single frontal view of the chest was obtained Comparison: CT CTA CHEST PE on DOS: 08/15/24, DI CHEST,SINGLE VIEW on DOS: 08/14/24, DI CHEST,SINGLE V IEW on DOS: 08/13/24, DI CHEST,SINGLE VIEW on DOS: 08/13/24, DI CHEST,SINGLE VIEW on DOS: 08/12/24 FINDINGS: Lines and Tubes: None Lungs: No focal consolidation. Pleura: No effusion. No pneumothorax. Cardiomediastinal contours: Unremarkable Bones: No acute osseous abnormality. IMPRESSION: No acute cardiopulmonary disease.
[2025-05-26 13:04] LABS: CREATININE 0.67 MG/DL (0.40-0.90); PRO BRAIN NATRIURETIC PEPTIDE 867 PG/ML (0-450); TOTAL CARBON DIOXIDE 26.7 MMOL/L (24-32); eCRCL 63 ML/MIN; eGFR 85 ML/MIN
[2025-05-26] MEDS: metoprolol tartrate 1mg/ml inj IV SCH (13:12)
[2025-05-26] MEDS: magnesium sulf-water 2g/50mL 50 ML IV ONE (14:08)
--- NOTE | 2025-05-26 15:05 | Physician Documentation ---
History of Present Illness ~ Chief Complaint: Palpitations Stated Complaint: SOB; AFIB Time Seen by MD: 12:34 Primary Medical Doctor: GRACIE; CARDIO: DANETTE Mode of Arrival: POV, Ambulatory HPI This is a 79-year-old female with known history of high cholesterol, status post recent TAVR with intraoperative AFib now on Eliquis without prior tachycardia, wore a Holter, comes in for a proximally one month of progressive worsening shortness a breath, bilateral lower extremity swelling, and sensation of palpitation. Was feeling worse today. She was sent here by her PCP. She denies any chest pain. The shortness a breath is exertional and not certain whether it is positional. She is compliant with her cholesterol medication and her Eliquis. She does not take any antiarrhythmics or any diuretics. No concern for tobacco, alcohol or illicit substances use. Medication Reconciliation Allergies: Coded Allergies: No Known Allergies (Unverified , 05/26/25) Scheduled Ascorbic Acid (Vitamin C), 1 CAP PO DAILY, (Reported) Aspirin (Aspirin EC), 1 TAB PO DAILY, (Reported) Cholecalciferol (Vitamin D3) (Vitamin D3), 1 CAP PO DAILY, (Reported) Metformin HCl (Metformin HCl ER), 1 TAB PO DAILY, (Reported) Multivitamin (Multi Vitamin Daily), 1 TAB PO DAILY, (Reported) Pal[place]-3/Dha/Epa/Fish Oil (Fish Oil 1,000 mg Softgel), 1 CAP PO 3xweek, (Reported) Simvastatin* (Zocor*), 1 TAB PO DAILY, (Reported) Ubidecarenone (Coq10), 50 MG PO DAILY, (Reported) Zinc Gluconate-Zinc Picolinate (Zinc), 30 MG PO DAILY, (Reported) Past Medical History Past Medical History: Aortic Stenosis, Coronary Artery Disease, High Cholesterol, Diabetes, Chronic Back Pain Past Surgical History: hysterectomy Patient History: Patient reports no known family medical history. Drug Use: none Lives In: Home Review of Systems ROS 10 point review of systems was performed and unless noted above in HPI is neg ative for acute process/complaint. Physical Exam Vital Signs: Temperature: 96.7, Heart Rate: 70, Respiratory Rate: 16, BP: 124/75, Pulse Oximetry: 95, Weight: 103.400 Oxygen Flow Rate: 0 Physical Exam GENERAL: Awake, alert, oriented, GCS 15, no apparent distress, non-toxic appearing, answers questions, follows commands appropriately. Examined in bed 14., accompanied by HEENT: Atraumatic, normocephalic, pupils equal, extraocular muscles intact, sclerae anicteric, mucus membranes moist, oropharynx is clear, no stridor. NECK: supple, full active range of motion, trachea midline, no thyromegaly, no lymphadenopathy, no JVD. CARDIOVASCULAR: Tachycardic and irregularly irregular rate/rhythm, no murmurs/gallops/rubs, Pulses are 2+ in all extremities and symmetric. Capillary refill less than 2 seconds. PULMONARY: Nonlabored, good air movement ,no respiratory distress, speaking in full sentences, clear to auscultation bilaterally, no wheezing, no ronchi, no rales, no accessory muscle use. GASTROINTESTINAL: Soft, non-tender, non-distended, normal active bowel sounds, no organomegaly, no pulsatile masses, no CVA tenderness. NEUROLOGIC: Lucid with normal mental status. Normal facial symmetry. Moves all extremities symmetrically and with purpose. No truncal ataxia. Speech is fluid without evidence of dysarthria or aphasia, no focal deficits appreciated. MUSCULOSKELETAL: There is full range of motion of all extremities. There is no joint pain or joint swelling or joint erythema. There is no muscle pain or tenderness or swelling. EXTREMITIES: warm, well-perfused, no cyanosis, no clubbing, bilateral lower extremity edema, no acute deformities. Skin: warm, dry, no rashes or lesions, no jaundice, no petechiae orpurpura. No ecchymosis. PSYCHIATRIC: Normal affect, normal insight, normal concentration. Focused exam: [] Progress Results/Orders Results/Orders Orders - HECTOR ARTEAGA DO Chest,Single View (05/26/25 12:35) Monitor (05/26/25 12:35) Saline Lock (05/26/25 12:35) Oxygen (05/26/25 12:35) Hs Troponin I W Calculations (05/26/25 14:35) Hs Troponin I W Calculations (05/26/25 15:35) Metoprolol Tartrate Inj (Lopressor Iv) (05/26/25 12:50) Completed Orders - HECTOR ARTEAGA DO Chest,Single View (05/26/25 12:35) Cbc/Diff (05/26/25 12:35) BMP (05/26/25 12:35) PBNP (05/26/25 12:35) Hs Troponin I W Calculations (05/26/25 12:35) Electrocardiogram (05/26/25 ) Magnesium Sulf-Water 2g/50ml (Magnesium (05/26/25 13:55) Medications Received in ER Medications (Trade) Dose Ordered Sig/Timi Route PRN Reason Start Time Stop Time Status Last Admin Dose Admin (Lopressor IV) 5 mg Q15M IV 05/26/25 12:50 05/26/25 13:43 5 MG Magnesium Sulfate 50 ml @ 100 mls/hr ONCE ONCE IV 05/26/25 13:55 05/26/25 14:24 DC 05/26/25 14:08 100 MLS/HR Vital Signs 05/26/25 05/26/25 05/26/25 05/26/25 12:17 12:36 13:12 13:43 Temp 96.7 Pulse 136 139 136 Resp 20 17 B/P (MAP) 125/81 Pulse Ox 96 05/26/25 14:01 Pulse 70 Resp 16 B/P (MAP) 124/75 (91) Pulse Ox 95 O2 Flow Rate 0 Laboratory Tests Test 05/26/25 12:14 White Blood Count 8.0 Red Blood Count 4.09 L Hemoglobin 12.7 Hematocrit 38.4 Mean Corpuscular Volume 93.8 Mean Corpuscular Hemoglobin 31.2 H Mean Corpuscular Hemoglobin Concent 33.2 Red Cell Distribution Width 13.6 Platelet Count 145 Mean Platelet Volume 9.9 Neutrophils (%) (Auto) 72.2 Lymphocytes (%) (Auto) 17.8 L Monocytes (%) (Auto) 8.0 Eosinophils (%) (Auto) 1.6 Basophils (%) (Auto) 0.4 Neutrophils # (Auto) 5.8 Lymphocytes # (Auto) 1.4 Monocytes # (Auto) 0.6 Eosinophils # (Auto) 0.1 Basophils # (Auto) 0.0 CBC Comment Sodium Level 142 Potassium Level 4.3 Chloride Level 107 Carbon Dioxide Level 26.7 Anion Gap 8 Blood Urea Nitrogen 15 Creatinine 0.67 Estimated GFR/1.73 m2 85 BUN/Creatinine Ratio 22.4 H Glucose Level 114 H Calcium Level 9.0 Troponin I High Sensitivity 16 Pro-B-Type Natriuretic Peptide 867 H Albumin 3.8 Chemistry Comments Medical Decision Making Findings Facility Status: ED Holds, RME process The plan was discussed with the patient, who demonstrates clear understanding of the plan and is in agreement with the plan unless otherwise noted in the chart. All questions have been answered, all concerns were addressed unless otherwise documented. I was available throughout their ED stay for frequent reassessment and questions. Differential Diagnoses (considered and possible or likely): [] ??Differential Diagnoses (considered and unlikely, not requiring evaluation currently): [] MDM Data Please see [facility] for the following: Independent Historians and external Records Review. Historian: [Patient] Independent Historians: ?[Record review] Medication Management: [Reviewed medication list] Social History and determinants: [Reviewed] Please see the body of the note for the following: Any independent interpretations of ECG, imaging studies. All vitals signs/haemodynamics, ordered tests were independently reviewed and interpreted by myself. Nursing triage complaint and vitals reviewed, additional nursing notes were reviewed as available and I agree unless otherwise noted or documented in contradiction in the chart Vital Signs: Independently reviewed Labs: Independently interpreted Imaging: Independently interpreted Old Medical Records: Independently reviewed, see [facility] for relevant summary and information Pulse Oximetry: [98%] interpreted as [normal on room air] by me [Powder Line Repairer: Tachycardic Rate, irregularly irregular normal rhythm, no ectopy, AFib with a RVR. reviewed and interpreted by me] Additionally notably showing: [Hemodynamics reviewed. Initially tachycardic, irregularly irregular consistent with a AFib with a RVR. She improved with metoprolol and magnesium. No evidence of hypotension. No evidence of respiratory distress. CBC normal. No anemia. No leukocytosis. Metabolic panel notable for intravascular depletion/dehydration, elevated BNP, normal troponin. Chest x-ray was obtained showing no acute cardiopulmonary disease.] Tests considered but not ordered include: [Advanced imaging has been considered but does not appear to be necessary] Social Determinants of Health Impact: Patient was evaluated in [facility] [place] to healthcare due to below par ratio of patient to medical providers. [] Comorbid Conditions Impacting Present Evaluation and Care/Treatment: [Multiple comorbidities, see list Management Discussions with other Healthcare Providers: [Hospitalist regarding admission] Treatment and Disposition Medication Management (Given or considered): [Antiarrhythmics]. See EMR for details Consideration for Hospitalization/Escalation/Deescalation of Care: Admission for observation has been considered, for further workup of her atrial fibrillation with a rapid ventricular response ?ED Course:?[Clinically improved. Feeling better.] ?Shared decision making:?[] Code status:?FULL Please see the full Electronic Medical Record for full details of nursing documentation, medications list, other records of complete past medical history and conditions, vital signs, laboratory studies, and any radiologic study interpretations by radiologists. Portions of this note were completed using [employer] dictation software and as a result there may exist minor errors in spelling. I have reviewed elements of past family and social history and agree as included in note. Departure Disposition: ADMITTED INPATIENT Admitted to Inpatient Unit: to hospitalist Impression: Primary Impression: Atrial fibrillation with rapid ventricular response Additional Impressions: Congestive heart failure Bilateral lower extremity edema Dyspnea Condition: Improved Referrals: NO PRIMARY CARE PROVIDER (PCP) Critical Care Note Critical Care Note CRITICAL CARE TIME: [ 35] minutes Treatments/Evaluations: Close monitoring and treatment of unstable vital signs, cardiorespiratory, and neurologic status, while maintaining tight balance of fluid, respiratory, and cardiac interventions. This time includes discussing the case with the patient and the patients family. This time does not include all procedures stated elsewhere in this record. This time also includes reviewing old records, labs and radiological studies. This time includes examining and re- examining the patient. Additionally, this time also includes arranging care with admitting and consulting physicians. Signature Scribe Signature: No scribe Attestation: This note accurately reflects clinical decisions, work performed by myself, Hector Arteaga, HECTOR SHAH DO May 26, 2025 15:05
[2025-05-26] MEDS ORDERED: HYDROcodone/acetaminophen 5mg/325mg tablet PO PRN (16:15)
[2025-05-26] MEDS ORDERED: potassium Cl 20 mEq SR tablet PO PRN ×2 (16:15)
[2025-05-26] MEDS ORDERED: potassium Cl 40MEQ/1/2NS 520ml 520 ML IV PRN (16:15)
[2025-05-26] MEDS ORDERED: magnesium Cl slow-release 64mg tablet PO PRN (16:15)
[2025-05-26] MEDS ORDERED: ondansetron/PF 4mg/2ml inj IV PRN (16:15)
[2025-05-26] MEDS ORDERED: magnesium sulf-water 4G/100mL 100 ML IV PRN (16:15)
[2025-05-26] MEDS ORDERED: magnesium sulf-water 2g/50mL 50 ML IV PRN (16:15)
[2025-05-26 17:50] VITALS: BP 116/55; PULSE 104; RESP 17; TEMP 96.1; O2SAT 97
--- NOTE | 2025-05-26 18:10 | HISTORY AND PHYSICAL ---
History & Physical Providers to CC ~ History of Present Illness Reason for Admit\Complaint: worsening shortness a breath, bilateral edema and palpitations History of Present Illness This is a 79-year-old female with known history of high cholesterol, Aortic Stenosis, Coronary Artery Disease, High Cholesterol, Diabetes, syncope likely secondary to aortic stenosis sepsis likely secondary to UTI, right-sided hydronephrosis with obstructing right-sided distal ureteral calculi, Chronic Back Pain . Patient came to ER with her concern regarding increased swelling over the ankles , worsening of shortness of breaths. Patient recently saw her payroll tax specialist Dr. Livia Martinez couple of weeks back after her recent TAVR and she has appointment with her surgeon who did the TAVR on June 07, 2025. Denied any chest pain , further workup done in ER showed atrial fibrillation with RVR hospitalist services contacted for admission and further management.She is compliant with her cholesterol medication and her Eliquis. She does not take any antiarrhythmics or any diuretics. No concern for tobacco, alcohol or illicit substances use. Patient denied any new changes in her medications. No other associated factors but as per patient's they are dealing with stressful situation currently. Allergies: Coded Allergies: No Known Allergies (Unverified , 05/26/25) Home Medications Home Medications Active Reported Multi Vitamin Daily (Multivitamin) 1 Each Tablet 1 Tab PO DAILY Coq10 (Ubidecarenone) 50 Mg Tab.chew 50 Mg PO DAILY Vitamin D3 (Cholecalciferol (Vitamin D3)) 1,250 Mcg (77729 Unit) Capsule 1 Cap PO DAILY Vitamin C (Ascorbic Acid) 500 Mg Capsule.sa 1 Cap PO DAILY Zinc (Zinc Gluconate-Zinc Picolinate) 30 Mg Capsule 30 Mg PO DAILY Fish Oil 1,000 mg Softgel ([place]-3/Dha/Epa/Fish Oil) 1,000 Mg (120 Mg-180 Mg) Capsule 1 Cap PO 3XWEEK Zocor* (Simvastatin) 20 Mg Tablet 1 Tab PO DAILY 30 Days Aspirin EC (Aspirin) 81 Mg Tablet.dr 1 Tab PO DAILY 30 Days Metformin HCl ER (Metformin HCl) 500 Mg [id number] 1 Tab PO DAILY 30 Days Past Medical History Past Medical History Aortic Stenosis, Coronary Artery Disease, High Cholesterol, Diabetes, Chronic Back Pain Syncope likely secondary to Aortic stenosisSepsis likely secondary to UTI, Right-sided hydroureteronephrosis with obstructing right distal ureteral calculi Past Surgical History Surgical History Comment s/p TAVR, Hysterectomy Family History Family History: Patient reports no known family medical history. Past Social History Social History Comment Lives with her denies use of any alcohol tobacco or any recreational drugs Exam Vitals: Vital Signs Date Time Temp Pulse Resp B/P (MAP) Pulse Ox O2 Delivery O2 Flow Rate FiO2 05/26/25 17:13 96.7 98 18 106/76 (86) 96 0 General: General-patient not in any acute distress, alert awake oriented, chronically ill-appearing, age-appropriate, obese , looks comfortable HEENT-atraumatic normocephalic, neck supple without elevated JVD, no thyromegaly or carotid bruit. No lymphadenopathy bilaterally. Eyes-no icterus or pallor seen in eyes Chest-clear to auscultation bilaterally, breathing nonlabored no tachypnea, no wheezing, no crepitation, no crackles. Heart-S1-S2 normal, regular heart rate no murmur Abdomen bowel sounds positive on auscultation, soft nondistended nontender no guarding, no rigidity Skin no active skin rash Neurology-grossly intact, nonfocal alert awake oriented Extremity- trace to 1 plus pedal edema bilaterally able to move all 4 extremities Psychiatry - patient is not confused or agitated cooperated during physical examination Diagnostic Data Last Recorded Lab Results: 05/26/25 1214 05/26/25 1214 Advance Care Planning Advanced Care plannin - 30 Minutes Additional Plan This is a 79-year-old female with known history of high cholesterol, Aortic Stenosis, Coronary Artery Disease, High Cholesterol, Diabetes, syncope likely secondary to aortic stenosis sepsis likely secondary to UTI, right-sided hydronephrosis with obstructing right-sided distal ureteral calculi, Chronic Back Pain . Patient came to ER with her concern regarding increased swelling over the ankles , worsening of shortness of breaths. Patient is admitted today for atrial fibrillation with RVR . Ordered echocardiogram we will continue to monitor heart rhythm on tele monitor. Patient follows with Dr. Livia Martinez. Patient recently saw her payroll tax specialist Dr. Livia Martinez couple of weeks back after her recent TAVR and she has appointment with her surgeon who did the TAVR on June 07, 2025. We will do home medication reconciliation once updated in electronic record system by nursing staff or pharmacist. Patient's rhythm is still AFib but no signs of AVR when I evaluated her. Code status discussed with the patient patient wishes to stay full code was present at bedside. Further management depending on echocardiogram results. I will continue to follow patient in a.m. Date of Service: May 26, 2025 Billing Provider: BITA CABRERA MD Common Visit Codes: [id number] INP/OBS CARE (HIGH) Secondary Visit Codes: [id number] CARE PLAN 30 MINUTES BITA CABRERA MD May 26, 2025 18:10
--- NOTE | 2025-05-26 18:48 | CARDIOLOGY REPORT ---
APPROVED REPORT EXAM: Comprehensive 2D, Doppler, and color-flow Echocardiogram. Patient Location: ER 14 Blood Pressure: 117/82 mmHg Heart Rate: 80-130 bpm Rhythm: ATRIAL FIBRILLATION Indications ARRHYTHMIA ELEVATED PROBNP (867) NEW ONSET ATRIAL FIBRILLATION LOWER EXTREMITY SWELLING HYPERLIPIDEMIA SHORTNESS OF BREATH X1 MONTH TAVR (SIZE UNK) 04/07/25 [facility] Senior Environmental Practice Leader: Ayden Martinez MD Previous echo: CV / Triston - unavailable (after hours) 2D Dimensions IVSd 1.4 (0.7-1.1cm) LVDd 4.2 cm PWd 1.2 (0.7-1.1cm) IVSs 1.5 (0.8-1.2cm) LVDs 3.0 (2.5-4.0cm) PWs 1.5 (0.8-1.2cm) LVEF(%) 53.8 (>50%) IVC 25.64 mm FS (%) 27.5 % SV 42.2 ml CO 5.3 L/min M-Mode Dimensions Left Atrium(MM) 4.43 (2.5-4.0cm) IVSd 1.15 (0.7-1.1cm) LVDd 5.68 (4.0-5.6cm) Aortic Root 2.83 (2.2-3.7cm) PWd 1.69 (0.7-1.1cm) Aortic Cusp Exc 1.35 (1.5-2.0cm) IVSs 1.52 cm MV EPSS 0.6 (<0.5cm) LVDs 4.20 (2.0-3.8cm) FS (%) 27 % PWs 2.18 cm ESV(Teich) 54.1 ml LVEF(%) 52 (>50%) Aortic Valve AoV Peak Bhavin. 198.7 cm/s AoV VTI 31.3 cm AO Peak GR. 15.8 mmHg AO Mean GR. 8 mmHg LVOT VTI 19.89 cm LVOT Peak Bhavin. 129.5 cm/s Tricuspid Valve TR P. Velocity 228 cm/s RAP ESTIMATE 10 mmHg TR Peak Gr. 21 mmHg RVSP 31 mmHg LEFT VENTRICLE Normal LV size and function. Moderate concentric hypertrophy. LVEF is 50-60% due to widely variant at rial fibrillation. RIGHT VENTRICLE RV size and function appear normal. RVSP is estimated at 31 mmHg. ATRIA Moderate biatrial dilation. AORTIC VALVE TAVR of unknown size appears well seated with trivial PVL best visualized apically. Peak / mean gradi ents of 16 / 8 mmHg. Peak velocity is measured at 1.98 m/s. MITRAL VALVE Mild MV annular calcification without stenosis. Trace regurgitation. TRICUSPID VALVE TV appears structurally normal with mild regurgitation. PULMONIC VALVE Normal PV without stenosis, physiologic insufficiency. GREAT VESSELS Aortic root is normal in size. IVC is dilated and collapses less than 50% with inspiration. PERICARDIUM Normal pericardium. No effusion. Prominent anterior epicardial fat pad. Other Information Study Quality: Adequate Conclusion Normal LV size and function. Moderate concentric hypertrophy. LVEF is 50-60% due to widely variant a trial fibrillation. RV size and function appear normal. RVSP is estimated at 31 mmHg. Moderate biatrial dilation. TAVR of unknown size appears well seated with trivial PVL best visualized apically. Peak / mean gradi ents of 16 / 8 mmHg. Peak velocity is measured at 1.98 m/s. Mild MV annular calcification without stenosis. Trace regurgitation. TV appears structurally normal with mild regurgitation. Normal pericardium. No effusion. Prominent anterior epicardial fat pad.
[2025-05-26] MEDS ORDERED: APIX5TAB3 PO (19:12)
[2025-05-26] MEDS ORDERED: heparin, porcine 5000 units/ml vial SQ SCH (20:00)
[2025-05-26] MEDS ORDERED: metoprolol tartrate 1mg/ml inj IV PRN (21:40)
[2025-05-26 22:00] VITALS: BP 125/52; PULSE 111; RESP 16; TEMP 97.6; O2SAT 96
[2025-05-27] VITALS (9 sets, daily range): BP systolic 118–145; BP diastolic 84–106; PULSE 68–135; RESP 12–20; TEMP 96.9–98.2; O2SAT 92–100
[2025-05-27 06:44] LABS: MEAN PLATELET VOLUME 9.9 FL (7.4-10.4); RED CELL DISTRIBUTION WIDTH 13.8 % (11.5-14.5)
[2025-05-27 07:07] LABS: CREATININE 0.60 MG/DL (0.40-0.90); TOTAL CARBON DIOXIDE 28.8 MMOL/L (24-32); eCRCL 69 ML/MIN; eGFR > 90 ML/MIN
[2025-05-27] MEDS: aspirin 81mg, enteric-coated 1 TAB TABLET.DR PO SCH (07:44)
[2025-05-27] MEDS: metoprolol succinate 25mg (24-HOUR) SR. Tablet PO SCH (08:56)
[2025-05-27] MEDS ORDERED: dextrose 50%-water 50ml dispensing syringe IV PRN ×2 (13:25)
[2025-05-27] MEDS ORDERED: glucagon, human recombinant 1mg kit SUBCUT PRN (13:25)
[2025-05-27] MEDS ORDERED: DEXTROSE 15 GM of carb/4 tabs (each vial/BOTTLE has 4 tablets) PO PRN ×2 (13:25)
--- NOTE | 2025-05-27 13:30 | PROGRESS NOTE ---
Daily Progress Note Providers to CC ~ Antibiotic Timeout Antibiotic Ordered?: No Subjective Patient was seen in her room she looked comfortable denied any concern heart rate was well controlled when I evaluated the patient but at night her heart rate was racing again. Patient is started on metoprolol succinate today patient was not sure why she is not on any medication to control her heart rate but she was taking Eliquis as prescribed Objective Vital Signs Date Time Temp Pulse Resp B/P (MAP) Pulse Ox O2 Delivery O2 Flow Rate FiO2 05/27/25 11:00 97.9 133 20 118/84 (95) 96 Room Air 05/26/25 17:13 0 Result Diagram: 05/27/25 0542 05/27/25 0542 General-patient not in any acute distress, alert awake oriented, chronically ill-appearing, age-appropriate, obese , looks comfortable HEENT-atraumatic normocephalic, neck supple without elevated JVD, no thyromegaly or carotid bruit. No lymphadenopathy bilaterally. Eyes-no icterus or pallor seen in eyes Chest-clear to auscultation bilaterally, breathing nonlabored no tachypnea, no wheezing, no crepitation, no crackles. Heart-S1-S2 normal, regular heart rate no murmur Abdomen bowel sounds positive on auscultation, soft nondistended nontender no guarding, no rigidity Skin no active skin rash Neurology-grossly intact, nonfocal alert awake oriented Extremity- trace to 1 plus pedal edema bilaterally able to move all 4 extremities Psychiatry - patient is not confused or agitated cooperated during physical examination Problem\Assessment\Plan This is a 79-year-old female with known history of high cholesterol, Aortic Stenosis, Coronary Artery Disease, High Cholesterol, Diabetes, syncope likely secondary to aortic stenosis sepsis likely secondary to UTI, right-sided hydronephrosis with obstructing right-sided distal ureteral calculi, Chronic Back Pain . Patient came to ER with her concern regarding increased swelling over the ankles , worsening of shortness of breaths. Patient is admitted today for atrial fibrillation with RVR . # atrial fibrillation with RVR improved, started on metoprolol tartrate today we will continue to monitor heart rate. echocardiogram done today showed LVEF 50-60% with moderate concentric hypertrophy, TAVR well seated. Patient follows with Dr. Livia Martinez. Patient recently saw her floor specialist Dr. Livia Martinez couple of weeks back after her recent TAVR and she has appointment with her surgeon who did the TAVR on June 07, 2025. # patient is taking metformin for type 2 diabetes, repeat hemoglobin A1c ordered patient is started on hypo and hyperglycemic protocol # on simvastatin for hyperlipidemia. Home medication reconciliation done # Code status discussed with the patient patient wishes to stay full code was present at bedside. Patient's current condition is guarded. I will continue to follow patient in a.m. Date of Service: May 27, 2025 Billing Provider: BITA CABRERA MD Common Visit Codes: [id number] INP/OBS CARE(HIGH) BITA CABRERA MD May 27, 2025 13:30
[2025-05-27] MEDS ORDERED: mag hydrox/Alum hydrox/simeth 30ml oral suspension PO PRN (20:10)
[2025-05-27] MEDS: magnesium hydroxide 30ml (MOM) UD suspension PO PRN (20:44)
[2025-05-28] VITALS (12 sets, daily range): BP systolic 113–143; BP diastolic 70–100; PULSE 58–122; RESP 11–25; TEMP 96.9–97; O2SAT 94–97
[2025-05-28 06:56] LABS: MEAN PLATELET VOLUME 9.6 FL (7.4-10.4); RED CELL DISTRIBUTION WIDTH 13.7 % (11.5-14.5)
[2025-05-28 07:04] LABS: CREATININE 0.59 MG/DL (0.40-0.90); TOTAL CARBON DIOXIDE 32.5 MMOL/L (24-32); eCRCL 70 ML/MIN; eGFR > 90 ML/MIN
[2025-05-28] MEDS: docusate sod 100mg capsule PO SCH (08:17)
[2025-05-28] MEDS: metoprolol tartrate 1mg/ml inj IV ONE (09:28)
[2025-05-28] MEDS: diltiazem 30mg tablet PO SCH (09:28)
--- NOTE | 2025-05-28 14:04 | CONSULTATION REPORT ---
Cardiac Consultation Report Providers to CC CC: TESHA SAMANIEGO MD ~ Progress Note: 80yo woman with PMH significant for HTN, HLD, CAD, (s/p TAVR) admitted with increased palpitations, found to have Afib with RvR. Subjective Subjective In the interim, reports palpitations resolved. SOB improved. Objective Vitals Vital Signs Date Time Temp Pulse Resp B/P (MAP) Pulse Ox O2 Delivery O2 Flow Rate FiO2 05/28/25 09:28 134 05/28/25 08:00 16 97 Room Air 05/28/25 06:00 97.0 142/100 (114) 05/26/25 17:13 0 Lab Results: 05/28/25 0628 05/28/25 0628 Objective GENERAL: Awake, alert, NAD CV: ++Irreg rhythm, normal rate. No murmurs LUNGS: CTAB GI: +BS, soft, non-tender/distended EXT: 2+ radial pulses, no edema PSYCH: cooperative Problem\Assessment\Plan Problems/Diagnosis: (1) Atrial fibrillation with rapid ventricular response Assessment & Plan: Appears to be more Aflutter. CV 5. TTE with preserved LVEF. --Change Dilt to XL 180mg BID given now rate controlled --d/c metop --Cont Eliquis 5mg BID --Keep f/u outpt to discuss referral for ablation THOMAS SAMANIEGO MD May 28, 2025 14:04
[2025-05-28] MEDS: diltiazem-NS 100mg/100ml 100 ML IV SCH (17:00)
--- NOTE | 2025-05-28 18:30 | PROGRESS NOTE ---
Daily Progress Note Providers to CC ~ Antibiotic Timeout Antibiotic Ordered?: No Subjective Patient was seen in her room her heart rate was still racing. Dr. Livia Martinez aware regarding this patient's admission. Patient is started on Cardizem drip today Objective Vital Signs Date Time Temp Pulse Resp B/P (MAP) Pulse Ox O2 Delivery O2 Flow Rate FiO2 05/28/25 09:28 134 05/28/25 08:00 16 97 Room Air 05/28/25 06:00 97.0 142/100 (114) 05/26/25 17:13 0 Result Diagram: 05/28/25 0628 05/28/25 0628 General-patient not in any acute distress, alert awake oriented, chronically ill-appearing, age-appropriate, obese , looks comfortable HEENT-atraumatic normocephalic, neck supple without elevated JVD, no thyromegaly or carotid bruit. No lymphadenopathy bilaterally. Eyes-no icterus or pallor seen in eyes Chest-clear to auscultation bilaterally, breathing nonlabored no tachypnea, no wheezing, no crepitation, no crackles. Heart-S1-S2 normal, regular heart rate no murmur Abdomen bowel sounds positive on auscultation, soft nondistended nontender no guarding, no rigidity Skin no active skin rash Neurology-grossly intact, nonfocal alert awake oriented Extremity- trace to 1 plus pedal edema bilaterally able to move all 4 extremities Psychiatry - patient is not confused or agitated cooperated during physical examination Problem\Assessment\Plan This is a 79-year-old female with known history of high cholesterol, Aortic Stenosis, Coronary Artery Disease, High Cholesterol, Diabetes, syncope likely secondary to aortic stenosis sepsis likely secondary to UTI, right-sided hydronephrosis with obstructing right-sided distal ureteral calculi, Chronic Back Pain . Patient came to ER with her concern regarding increased swelling over the ankles , worsening of shortness of breaths. Patient is admitted today for atrial fibrillation with RVR . # atrial fibrillation with RVR improved, started on metoprolol tartrate today we will continue to monitor heart rate. echocardiogram done today showed LVEF 50-60% with moderate concentric hypertrophy, TAVR well seated. Patient follows with Dr. Livia Martinez. Patient recently saw her web site specialist Dr. Livia Martinez couple of weeks back after her recent TAVR and she has appointment with her surgeon who did the TAVR on June 07, 2025. Patient is started on Cardizem drip today # patient is taking metformin for type 2 diabetes, repeat hemoglobin A1c ordered patient is started on hypo and hyperglycemic protocol # on simvastatin for hyperlipidemia. Home medication reconciliation done # Code status discussed with the patient patient wishes to stay full code was present at bedside. Patient's current condition is guarded. I will continue to follow patient in a.m. Date of Service: May 28, 2025 Billing Provider: BITA CABRERA MD Common Visit Codes: [id number] INP/OBS CARE(HIGH) BITA CABRERA MD May 28, 2025 18:30
[2025-05-29 01:15] VITALS: BP 100/48; PULSE 67; RESP 12
[2025-05-29 02:15] VITALS: BP 114/53; PULSE 69; RESP 11
[2025-05-29 03:15] VITALS: BP 92/43; PULSE 69; RESP 11
[2025-05-29 06:00] VITALS: BP 103/57; PULSE 93; RESP 12; TEMP 97.2; O2SAT 96
[2025-05-29 06:55] LABS: MEAN PLATELET VOLUME 9.5 FL (7.4-10.4); RED CELL DISTRIBUTION WIDTH 13.9 % (11.5-14.5)
[2025-05-29 07:41] LABS: CREATININE 0.72 MG/DL (0.40-0.90); TOTAL CARBON DIOXIDE 33.1 MMOL/L (24-32); eCRCL 57 ML/MIN; eGFR 78 ML/MIN
[2025-05-29 08:00] VITALS: RESP 16; O2SAT 97
[2025-05-29] MEDS: metoprolol succinate 25mg (24-HOUR) SR. Tablet PO SCH (08:37)
[2025-05-29] MEDS ORDERED: METO-395 PO (08:47)
[2025-05-29] MEDS ORDERED: CARSR60C PO ×2 (08:47→10:00)
[2025-05-29] MEDS: diltiazem SR 60mg capsule (twice daily) PO SCH (10:00)
[2025-05-29] MEDS: bisacodyl 10mg suppository rectal RC PRN (10:17)
--- NOTE | 2025-05-29 18:40 | DISCHARGE SUMMARY ---
Discharge Summary Providers to CC ~ Discharge Summary Admission Diagnosis: Afib with RVR Hospital Course DATE OF ADMISSION: May 26, 2025 DATE OF DISCHARGE: May 29, 2025 CBC testing done on May 29, 2025 WBC 8.6 hemoglobin 12.5 hematocrit 37.6 platelet count 146. Serum chemistry done on May 29, 2025 sodium 146 potassium 5.0 creatinine 0.72 GFR 78. Hemoglobin A1c 6.3, proBNP 867, ECHOCARDIOGRAM-Conclusion Normal LV size and function. Moderate concentric hypertrophy. LVEF is 50-60% due to widely variant atrial fibrillation. RV size and function appear normal. RVSP is estimated at 31 mmHg. Moderate biatrial dilation. TAVR of unknown size appears well seated with trivial PVL best visualized apically. Peak / mean gradients of 16 / 8 mmHg. Peak velocity is measured at 1.98 m/s. Mild MV annular calcification without stenosis. Trace regurgitation. TV appears structurally normal with mild regurgitation. Normal pericardium. No effusion. Prominent anterior epicardial fat pad. CHEST,SINGLE VIEW-IMPRESSION: No acute cardiopulmonary disease. Discharge Diagnosis\Comment: Aflutter, type 2 diabetes, hyperlipidemia. Aortic Stenosis, Coronary Artery Disease, recent TAVR Operations\Procedures: None Consultants: Dr Livia Martinez Complications: none Condition on DC: Stable New Medications: Diltiazem Hcl (Cardizem Sr) 60 Mg Cap.sr.12h 180 MG PO Q12H for 30 Days, #60 CAP.SR Continued Medications: Apixaban (Eliquis) 5 Mg Tablet 1 TAB PO Q12H for 30 Days, #60 TAB 0 Refills Ascorbic Acid (Vitamin C) 500 Mg Capsule.sa 1 CAP PO DAILY, CAP 0 Refills Aspirin (Aspirin EC) 81 Mg Tablet. 1 TAB PO DAILY for 30 Days, #30 TAB Cholecalciferol (Vitamin D3) (Vitamin D3) 1,250 Mcg (73419 Unit) Capsule 1 CAP PO DAILY, CAP 0 Refills Multivitamin (Multi Vitamin Daily) 1 Each Tablet 1 TAB PO DAILY, TAB 0 Refills [place]-3/Dha/Epa/Fish Oil (Fish Oil 1,000 mg Softgel) 1,000 Mg (120 Mg-180 Mg) Capsule 1 CAP PO 3xweek, CAP 0 Refills Simvastatin* (Zocor*) 20 Mg Tablet 1 TAB PO DAILY for 30 Days, #30 TAB Ubidecarenone (Coq10) 50 Mg Tab.chew 50 MG PO DAILY, TAB.CHEW Zinc Gluconate-Zinc Picolinate (Zinc) 30 Mg Capsule 30 MG PO DAILY, CAP Discharge Summary: This is a 79-year-old female with known history of high cholesterol, Aortic Stenosis, Coronary Artery Disease, High Cholesterol, Diabetes, syncope likely secondary to aortic stenosis sepsis likely secondary to UTI, right-sided hydronephrosis with obstructing right-sided distal ureteral calculi, Chronic Back Pain . Patient came to ER with her concern regarding increased swelling over the ankles , worsening of shortness of breaths. Patient is admitted for atrial fibrillation with RVR . During hospitalization patient was treated for # atrial fibrillation/ atrial flutter , heart rate improved, started on metoprolol tartrate, we will continued to monitor heart rate. Her heart rate was fluctuating and it was well controlled and then again getting higher. echocardiogram done showed LVEF 50-60% with moderate concentric hypertrophy, TAVR well seated. Patient follows with Dr. Livia Martinez. Patient recently saw her financial specialist Dr. Livia Martinez couple of weeks back after her recent TAVR and she has appointment with her surgeon who did the TAVR on June 07, 2025. Patient is started on Cardizem drip . Cardiology consult requested from Dr. Livia Martinez and he evaluated and patient s cardiac medication dose adjusted. As per financial specialist Keep f/u outpt to discuss referral for ablation. # patient is taking metformin for type 2 diabetes, repeat hemoglobin A1c ordered patient is started on hypo and hyperglycemic protocol # on simvastatin for hyperlipidemia. Home medication reconciliation done # Code status discussed with the patient patient wishes to stay full code was present at bedside. Patient is stable feeling better since her admission she has been afebrile getting discharged home with her . Her shortness of breaths also improved. Patient is going through some stress in her personal life and has anxiety which she mentioned to me in her visits. Patient is seen and examined on the day of discharge discharge instructions provided to the patient all labs diagnostic workup discussed before her discharge all questions and concerns addressed appropriately to the best of my professional medical knowledge.Please follow-up with Dr. Livia Martinez in outpatient setting. Further management of ca rdiac issues as per financial specialist. Activity as tolerated Adjustment of cardiac medication done during hospital stay. Maintain blood pressure and heart rate log book for 2-3 weeks and follow-up with the primary care physician or with financial specialist. General-patient not in any acute distress, alert awake oriented, chronically ill-appearing, age-appropriate, obese , looks comfortable HEENT-atraumatic normocephalic, neck supple without elevated JVD, no thyromegaly or carotid bruit. No lymphadenopathy bilaterally. Eyes-no icterus or pallor seen in eyes Chest-clear to auscultation bilaterally, breathing nonlabored no tachypnea, no wheezing, no crepitation, no crackles. Heart-S1-S2 normal, irregular heart rate no murmur Abdomen bowel sounds positive on auscultation, soft nondistended nontender no guarding, no rigidity Skin no active skin rash Neurology-grossly intact, nonfocal alert awake oriented Extremity- trace to 1 plus pedal edema bilaterally able to move all 4 extremities Psychiatry - patient is not confused or agitated cooperated during physical examination *Problems/Diagnosis: (1) Atrial fibrillation with rapid ventricular response Status: Acute Total Time Spent on D/C: > 30 Minutes Date of Service: May 29, 2025 Billing Provider: BITA CABRERA MD Common Visit Codes: 12062-QYN/OBS DISCH DAY >30min BITA CABRERA MD May 29, 2025 17:39
== END 2025-05-29 13:02 | disposition home or self-care (01) | DRG 310 ==
LOC: ER 12:10 → ED HOLD 16:20 → PCU 3S 17:42
PROVIDERS: ADMIT Internal Medicine; ATTEND Internal Medicine
DX: I48.91 Unspecified atrial fibrillation (principal); I48.92 Unspecified atrial flutter; E11.9 Type 2 diabetes mellitus without complications; E78.00 Pure hypercholesterolemia, unspecified; F41.9 Anxiety disorder, unspecified; G89.29 Other chronic pain; I25.10 Atherosclerotic heart disease of native coronary artery without angina pectoris; I35.0 Nonrheumatic aortic (valve) stenosis; I50.9 Heart failure, unspecified; Z79.01 Long term (current) use of anticoagulants; Z79.84 Long term (current) use of oral hypoglycemic drugs; Z87.442 Personal history of urinary calculi; Z90.710 Acquired absence of both cervix and uterus; Z95.2 Presence of prosthetic heart valve; Z88.8 Allergy status to other drugs, medicaments and biological substances
CPT/HCPCS: 36415; 71045; 80048; 80053; 82948; 83036; 83880; 84484; 85025; 87081; 93005; 93306; 96365; 99291; G0378; J3490